=== PATIENT | female | born 2000 | race Caucasian/White ===

== ENCOUNTER 2023-06-25 12:24 | Inpatient (IN) | payer MEDICAID ==
[~2023-06-25] VITALS: Ht 154.9 cm; Wt 89.8 kg
[2023-06-25] MEDS ORDERED: LORazepam 2 MG TABLET PO PRN (17:30)
[2023-06-25] MEDS ORDERED: HALOPERIDOL 5 MG TABLET PO PRN (17:30)
[2023-06-25] MEDS ORDERED: INFLUENZA VIRUS VACCINE QVS 2023-24 (6MO+)/PF 60 MCG/0.5 ML SYRINGE IM. ONE (17:30)
[2023-06-25 18:50] VITALS: BP 120/74; PULSE 93; RESP 18; TEMP 97.9; O2SAT 97
[2023-06-25 20:47] VITALS: BP 114/87; PULSE 98; RESP 18; TEMP 97.2; O2SAT 99
[2023-06-26 00:05] VITALS: BP 118/83; PULSE 83; RESP 18; TEMP 97.8; O2SAT 100
[2023-06-26] MEDS: ZOLPIDEM TARTRATE 10 MG TABLET PO PRN (00:06)
[2023-06-26 08:15] VITALS: BP 115/72; PULSE 87; RESP 18; TEMP 97.6; O2SAT 97
[2023-06-26 09:00] LABS: BASOPHILS % (AUTO) 0.6 % (0.0-2.0); EOSINOPHILS % (AUTO) 1.8 % (1.0-6.0); HEMOGLOBIN 12.8 g/dL (12.0-16.0); LYMPHOCYTES # (AUTO) 2.5 K/uL (1.0-4.8); LYMPHOCYTES % (AUTO) 39.8 % (22.0-44.0); MEAN CORPUSCULAR HEMOGLOBIN 28.4 pg (26.0-34.0); MEAN CORPUSCULAR HGB CONC 33.7 G/dL (31.0-37.0); MEAN CORPUSCULAR VOLUME 84 fL (80-100); MONOCYTES # (AUTO) 0.5 K/uL (0.1-1.0); MONOCYTES % (AUTO) 7.5 % (2.0-9.0); NEUTROPHILS # (AUTO) 3.1 K/uL (1.8-7.7); NEUTROPHILS % (AUTO) 50.3 % (40.0-70.0); PLATELET COUNT (AUTO) 323 K/uL (150-450); RED BLOOD CELL COUNT(AUTO) 4.51 MIL/uL (4.00-5.20); RED CELL DISTRIBUTION WIDTH 13.2 % (11.5-14.5); WHITE BLOOD COUNT (AUTO) 6.2 K/uL (4.5-11.0)
[2023-06-26 09:22] LABS: HEMOGLOBIN A1C 5.3 % (3.8-5.6)
[2023-06-26 09:36] LABS: ALANINE AMINOTRANSFERASE 27 U/L (12-78); ALBUMIN 3.5 g/dL (3.4-5.0); ALKALINE PHOSPHATASE 58 U/L (46-116); ANION GAP 8 mmol/L (8-16); ASPARTATE AMINOTRANSFERASE 19 U/L (15-37); BILIRUBIN,TOTAL 1.2 mg/dL (0.1-1.0); CARBON DIOXIDE 26 mmol/L (22-29); CHLORIDE 102 mmol/L (98-107); CHOL/HDL RATIO 4.8 (3.9-5.7); CHOLESTEROL 207 mg/dL (131-200); CREATININE 0.58 mg/dL (0.60-1.30); FREE T4 (FREE THYROXINE) 0.88 ng/dL (0.76-1.46); GLOMERULAR FILTR. RATE CALC > 60 mL/min (>60); GLUCOSE,RANDOM 91 mg/dL (70-110); HCG,QUANTITATIVE < 1 mIU/mL (0-6); HDL CHOLESTEROL 43 mg/dL (40-60); LDL CHOL (CALC.) 133 mg/dL (0-130); POTASSIUM 3.9 mmol/L (3.5-5.1); SODIUM SERUM 136 mmol/L (136-145); T4 (THYROXINE) 5.8 mcg/dL (4.7-13.3); TOTAL PROTEIN, SERUM 7.2 g/dL (6.4-8.2); TRIGLYCERIDES 155 mg/dL (15-150); UREA NITROGEN, BLOOD 13 mg/dL (7-18)
[2023-06-26] MEDS: SERTRALINE HCL 50 MG TABLET PO SCH (13:12)
[2023-06-26] MEDS ORDERED: CloNIDine HCL 0.1 MG TABLET PO PRN (13:45)
[2023-06-26] MEDS ORDERED: PETROLATUM,WHITE 28 GM JELLY TP PRN (13:45)
[2023-06-26] MEDS ORDERED: LOPERAMIDE HCL 2 MG CAPSULE PO PRN (13:45)
[2023-06-26] MEDS ORDERED: IBUPROFEN 400 MG TABLET PO PRN (13:45)
[2023-06-26] MEDS ORDERED: GuaiFENesin/D-METHORPHAN [SUGAR-FREE] 200-20MG/10 ML SYRUP UDCUP PO PRN (13:45)
[2023-06-26] MEDS ORDERED: MAG HYDROX/ALUMINUM HYD/SIMETH ES 30 ML SUSPENSION UDCUP PO PRN (13:45)
[2023-06-26] MEDS ORDERED: NICOTINE 14 MG/24 HOUR PATCH TD PRN (13:45)
[2023-06-26] MEDS ORDERED: ONDANSETRON HCL 4 MG TABLET PO PRN (13:45)
[2023-06-26] MEDS ORDERED: MAGNESIUM HYDROXIDE SUSPENSION 30 ML UDCUP PO PRN (13:45)
[2023-06-26] MEDS ORDERED: ACETAMINOPHEN 325 MG TABLET PO PRN (13:45)
[2023-06-26] MEDS ORDERED: DOCUSATE SODIUM 100 MG CAPSULE PO PRN (13:45)
[2023-06-26] MEDS ORDERED: ALBUTEROL SULFATE HFA 90 MCG/PUFF 8 GM INHALER IH PRN (13:45)
[2023-06-26 20:08] VITALS: BP 123/68; PULSE 77; RESP 19; TEMP 97.2; O2SAT 98
[2023-06-27 08:04] VITALS: BP 100/60; PULSE 70; RESP 17; TEMP 98; O2SAT 97
[2023-06-27 08:18] LABS: HEMOGLOBIN A1C 5.4 % (3.8-5.6)
[2023-06-27] MEDS: SERTRALINE HCL 50 MG TABLET PO SCH (08:26)
[2023-06-27 10:47] LABS: CHOL/HDL RATIO 5.1 (3.9-5.7); THYROID STIMULATING HORMONE 2.11 uIU/mL (0.36-3.74)
[2023-06-27 20:17] VITALS: BP 114/60; PULSE 82; RESP 18; TEMP 97.6; O2SAT 98
[2023-06-27] MEDS: ZOLPIDEM TARTRATE 10 MG TABLET PO PRN (21:47)
[2023-06-28 08:12] VITALS: BP 112/60; PULSE 80; RESP 17; TEMP 97; O2SAT 98
[2023-06-28] MEDS: SERTRALINE HCL 50 MG TABLET PO SCH (09:11)
[2023-06-28] MEDS ORDERED: SERT-439 PO (10:06)
== END 2023-06-28 16:10 | disposition home or self-care (01) | DRG 751 ==
LOC: B2S 17:31
PROVIDERS: ADMIT Psychiatry & Neurology Psychiatry; ATTEND Psychiatry & Neurology Psychiatry
DX: F33.2 Major depressive disorder, recurrent severe without psychotic features (principal); R45.851 Suicidal ideations; E66.3 Overweight; E78.5 Hyperlipidemia, unspecified; E80.6 Other disorders of bilirubin metabolism; Z79.899 Other long term (current) drug therapy; Z68.37 Body mass index [BMI] 37.0-37.9, adult
CPT/HCPCS: 80053; 80061; 83036; 84436; 84439; 84443; 84702; 85025